=== PATIENT | male | born 2000 | race Caucasian/White ===

== ENCOUNTER 2021-12-20 19:52 | Emergency (ER) | payer OTHER, SELFPAY ==
--- NOTE | ~2021-12-20 | US_ITS ---
US scrotum doppler INDICATION: Right testicular pain TECHNIQUE: Testicular sonogram utilizing grayscale and color Doppler FINDINGS: The testes are normal in size and appearance. No focal lesions are seen. The right testes measures 3.6 x 1.8 x 2.4 cm centimeters, and the left testis measures 3.7 x 2 x 2.4 cm cm. There is n ormal vascular flow to both testes. There is a 2 mm left epididymal cyst. There is no varicocele or hydrocele. IMPRESSION: 1. Testicular microlithiasis. 2: Left epididymal cyst measuring 2 mm. Reviewed, dictated and finalized at location A.
[2021-12-20 19:58] VITALS: BP 151/79; PULSE 116; RESP 16; TEMP 36.4; O2SAT 99
--- NOTE | 2021-12-20 20:10 | ED.MALEGU ---
HPI - Male Genitourinary General Chief complaint: Urogenital-Male Stated complaint: testicular pain Time Seen by Provider: 12/20/21 20:04 History of Present Illness HPI Narrative: 21-year-old male presents to the emergency room for evaluation of right testicular pain. Patient states the pain began suddenly approximately 1 hour ago. Describes the pain as a stabbing sensation. Denies any alleviating or aggravating factors. No concern over STD exposure. Denies dysuria. Denies injury or trauma. Related Data Home Medications Medication Instructions Recorded Confirmed triamcinolone acetonide 0.5 % 1 applic topical BID 05/10/19 topical cream Allergies Allergy/AdvReac Type Severity Reaction Status Date / Time No Known Allergies Allergy Unverified 12/20/21 19:53 Review of Systems Review of Systems: CONSTITUTIONAL: Denies fever, chills, or sweats. EYES: Denies visual changes, redness, or discharge. ENT: Denies rhinorrhea, congestion, sore throat, or otalgia. CARDIOVASCULAR: Denies chest pain, palpitations, or edema. RESPIRATORY: Denies cough or dyspnea. GASTROINTESTINAL: Denies abdominal pain, nausea, vomiting, or diarrhea. GENITOURINARY: Reports right testicular pain SKIN: Denies rash or itching. MUSCULOSKELETAL: Denies back pain, joint pain, or myalgia. NEUROLOGIC: Denies headache, numbness, dizziness, or weakness. PSYCHIATRIC: Denies anxiety or depression. [facility] Family History Family History Mother Diabetes mellitus Acute myocardial infarction Father Diabetes mellitus Social History Social History Smoking status: Never smoker Alcohol intake: never Exam Narrative: GENERAL: Well-appearing, well-nourished, no physical limitations, and in no acute distress. HEAD: Normocephalic, atraumatic. EYES: Conjunctivae normal, PERRLA and EOMI. CHEST: Clear to auscultation. No respiratory distress. No wheezes rales or rhonchi. No tenderness. HEART: Regular rate and rhythm. No murmur heard. Normal peripheral pulses. ABDOMEN: Soft, nontender, nondistended, normal active bowel sounds. : External testicular exam normal without masses or lesions, negative Prehn sign, cremasteric reflex present bilaterally, no erythema BACK: No CVA tenderness; No cervical/thoracic/lumbar tenderness, step-offs, bony abnormality; FROM EXTREMITIES: Normal range of motion. No edema. No clubbing or cyanosis SKIN: Warm, dry, no rash. No noted wounds NEURO: No focal deficits. Alert and oriented x3. MAEW. CN's II-XI intact bilaterally, normal gait PSYCH: Cooperative. Normal mood and affect. Course Vital Signs Vital signs: Vital Signs Temperature 36.4 C 12/20/21 19:58 Pulse Rate 116 H 12/20/21 19:58 Respiratory Rate 16 12/20/21 19:58 Blood Pressure 151/79 H 12/20/21 19:58 Pulse Oximetry 99 12/20/21 19:58 Oxygen Delivery Room Air 12/20/21 19:58 Temperature 36.4 C 12/20/21 19:58 Pulse Rate 116 H 12/20/21 19:58 Respiratory Rate 16 12/20/21 19:58 Blood Pressure 151/79 H 12/20/21 19:58 Pulse Oximetry 99 12/20/21 19:58 Oxygen Delivery Room Air 12/20/21 19:58 MDM - Male Genitourinary Imaging Data Radiologist's impression: Impressions Scrotum Ultrasound 12/20/21 22:18 IMPRESSION: 1. Testicular microlithiasis. 2: Left epididymal cyst measuring 2 mm. Discharge Plan Discharge Clinical Impression: Pain in right testicle Patient Disposition: Home, Self-Care Condition: Stable Instructions: Antibiotic Form, Testicle Pain (ED) Prescriptions: No Action triamcinolone acetonide 0.5 % cream 1 applic TOPICAL BID Follow-up/Referrals: PHYSICIAN NOT ON STAFF,NONSTAFF [Non-Staff] - Dale Hall MD [Physician] - Jose Luis Cline MD [Physician] - Time of Disposition: 22:45
[2021-12-20] MEDS: HYDROcodone/acetaminophen (*CRX) 5-325 MG TABLET 1 TAB PO (22:54)
== END 2021-12-20 23:06 | disposition home or self-care (01) ==
PROVIDERS: Emergency Provider Nurse Practitioner Family; PCP Family Medicine
DX: N50.811 Right testicular pain (principal)
CPT/HCPCS: 76870; 93976; 99284; A9270

== ENCOUNTER → 2022-01-19 10:16 | Outpatient (CLI) | payer OTHER, SELFPAY ==
--- NOTE | ~2022-01-19 | US_ITS ---
US scrotum doppler INDICATION: Follow-up left epididymal cyst TECHNIQUE: Testicular sonogram utilizing grayscale and color Doppler FINDINGS: The testes are normal in size and appearance. No focal lesions are seen. The right testes measures 3 x 2.2 x 3.7 cm centimeters, and the left testis measures 3.4 x 2.4 x 2.3 cm cm. There is n ormal vascular flow to both testes. There are multiple small left epididymal cyst measuring up to 2 mm. Normal right epididymis. There is no varicocele or hydrocele. IMPRESSION: 1. Small left epididymal cyst measuring 2 mm. Reviewed, dictated and finalized at location A.
== END ==
PROVIDERS: PCP Family Medicine; Visit Provider Nurse Practitioner Adult Health
DX: N50.3 Cyst of epididymis (principal)
CPT/HCPCS: 76870; 93976